=== PATIENT | female | born 1965 | race Caucasian/White ===

== ENCOUNTER → 2021-03-02 | Outpatient (CLI) | payer OTHER ==
[2020-10-28 15:59] VITALS: BP 151/95
[~2021-03-02] MED LIST: CIPR500T94 PO; HYDR12.58 PO; HYDR50TA9 PO; Hydrocodone/Acetaminophen PO; METR500T PO; OMEP20CA16 PO; PARO10TA3 PO; PARO20TA3 PO
== END ==
LOC: LAB 13:04
PROVIDERS: ATTEND Surgery
DX: Z01.812 Encounter for preprocedural laboratory examination (principal); Z20.822 Contact with and (suspected) exposure to COVID-19
CPT/HCPCS: U0003; U0005

== ENCOUNTER 2021-03-05 07:49 | Inpatient (IN) | payer OTHER ==
[~2021-03-05] VITALS: Ht 167.6 cm; Wt 125.0 kg
[~2021-03-05 07:49] MED LIST changes: +IV RINGERS,LACTATED 1000ML 1,000 ML IV SCH; +PROCHLORPERAZINE 10 MG/2 ML VIAL. IVP PRN; +ceFAZolin SODIUM 3 GM in IV DEXTROSE 5% 100ML 100 ML IV PRN; +fentaNYL PF VIAL 100 MCG/2 ML VIAL IVP PRN
[2021-03-05] MEDS ORDERED: fentaNYL PF VIAL 250 MCG/5 ML VIAL ONE (08:17)
[2021-03-05] MEDS ORDERED: LIDOCAINE 2% PF 5 ML VIAL. ONE (08:17)
[2021-03-05] MEDS ORDERED: PROPOFOL 10 MG/ML (20ML) VIAL. IV ONE (08:17)
[2021-03-05] MEDS ORDERED: ROCURONIUM 50 MG/5 ML VIAL. ONE ×2 (08:17→10:32)
[2021-03-05] MEDS ORDERED: DEXAMETHASONE SOD PHOS 4 MG/ML VIAL ONE (08:17)
[2021-03-05] MEDS ORDERED: ONDANSETRON PF 4 MG/2 ML VIAL. ONE (08:17)
[2021-03-05] MEDS ORDERED: SEVOFLURANE > 120 MINUTES. IH ONE (09:12)
[2021-03-05] MEDS ORDERED: GLYCOPYRROLATE 1 MG/5 ML VIAL. ONE (11:48)
[2021-03-05] MEDS ORDERED: NEOSTIGMINE METHYLSULFATE 5 MG/5 ML SYRINGE. ONE (11:48)
[2021-03-05] MEDS ORDERED: fentaNYL PF VIAL 100 MCG/2 ML VIAL ONE (11:49)
[2021-03-05] MEDS ORDERED: 0.9 % SODIUM CHLORIDE 10 ML DISP.SYRIN. IV PRN (12:15)
[2021-03-05] MEDS ORDERED: MORPHINE SULFATE 2 MG/ML VIAL. IV PRN (12:15)
[2021-03-05] MEDS ORDERED: ONDANSETRON PF 4 MG/2 ML VIAL. IV PRN (12:15)
--- NOTE | 2021-03-05 12:18 | PDOC4 ---
Operative Note Operative Note Date: March 05, 2021 at 1212 Preoperative diagnosis: Colostomy Postoperative diagnosis: Same Procedure: Colostomy reversal appendectomy Surgeon: Farhta Specimen: Appendix and descending colon Dictation: Patient is a 55-year-old female who had undergone a Purvis's procedure for perforated diverticulitis she returns now to have colostomy reversal. Procedure of colostomy reversal was explained to the patient detail risk-benefit were also discussed including bleeding infection possible nonhealing of the anastomosis with further surgery. Patient seemed understand and gave both verbal and written consent to have the procedure performed. Patient was taken to the operating room placed in the supine position general anesthesia was initiated once patient was sleeping intubated her abdomen was prepped and draped usual sterile fashion using ChloraPrep. A midline incision was made excising the previous scar. The fascia was incised and surgeon's hand was able to be placed within the abdomen the omentum was swept off of the underside of the fascia with blunt dissection allowing to further open the fascia the full length of the incision. Patient did have some adhesions but they were easily taken down with blunt dissection. The rectal stump was visualized and cleaned off of its adherent tissues the left ovarian tube was adherent to the rectal stump and this was taken down with sharp dissection the stump was cleaned off with adherent tissues giving good access to the proximal portion. Tensions were then turned to the colostomy site which was incised with electrocautery and the colostomy was freed up from the tunneling from the fascia to the skin surface the distal end of the colostomy was stapled and transected and sent for pathology. There were some adhesions to the omentum which were taken down with blunt and sharp dissection this allowed for enough mobilization of the proximal colon to be late into the pelvis. A 2 layered handsewn anastomosis between the proximal rectum and distal descending colon was performed. There is no tension on the anastomosis. The anastomosis performed with 3-0 Vicryl interlocking suture and 3-0 Vicryl Lembert's. The appendix was quite large and out of abundance of caution and appendectomy was performed the mesoappendix at the base the appendix was incised with electrocautery a clamp was placed at the base of the appendix the appendix was transected the mesoappendix was taken down with the LigaSure. Appendix was sent for pathology the stump of the appendix was tied off with a 0 chromic and inverted with a 3-0 Vicryl suture. Pelvis was irrigated and suctioned dry hemostasis deemed be appropriate that point. Tensions were then turned to the fascial defect at the previous colostomy site this was closed with a running oh looped PDS. The fascia was then closed with a running oh loop PDS. The subcutaneous layer was irrigated and suctioned dry a Gray was placed at the base of the wound and the deep layer of the wound was closed with a running 2-0 Vicryl and the skin is reapproximated 4-0 subcuticular Monocryl Mastisol Steri-Strips were applied. The colostomy site was closed deeply with a running 3-0 Vicryl the skin was reapproximated with 3-0 nylon loosely closed. Patient was awakened and extubated in the operating room taken to recovery in stable condition all sponge instrument needle counts listed as correct estimated blood loss 50 mL. SUZI FORD MD Mar 05, 2021 12:18
[2021-03-05] MEDS ORDERED: MORPHINE SULFATE 2 MG/ML VIAL. ONE (12:56)
[2021-03-05] MEDS: MORPHINE SULFATE 2 MG/ML VIAL. IVP PRN ×2 (12:59→13:09)
[2021-03-05] MEDS ORDERED: HYDROmorphone 2 MG/ML VIAL ONE (13:18)
[2021-03-05] MEDS: HYDROmorphone 2 MG/ML VIAL IVP PRN ×4 (13:21→13:51)
[2021-03-05 15:39] VITALS: BP 140/85
[2021-03-05] MEDS: IV DEXTROSE 5%-LACT RINGERS 1,000 ML IV SCH ×2 (16:11→23:49)
[2021-03-05] MEDS: cefOXitin SODIUM IV Push 1 GM VIAL. IVP SCH ×2 (16:11→23:50)
[2021-03-05] MEDS: oxyCODONE/APAP 5/325 1 TAB TABLET PO PRN ×2 (16:44→20:56)
[2021-03-05] MEDS: KETOROLAC 15 MG/ML VIAL. IV SCH ×2 (18:32→23:50)
[2021-03-05 19:22] VITALS: BP 112/72
[2021-03-05] MEDS: NYSTATIN TOPICAL POWDER 15GM BOTTLE. TP SCH ×2 (20:36→20:45)
[2021-03-05 23:00] VITALS: BP 104/63
[2021-03-06] MEDS: oxyCODONE/APAP 5/325 1 TAB TABLET PO PRN ×4 (02:21→19:46)
[2021-03-06 03:00] VITALS: BP 111/76
[2021-03-06] MEDS ORDERED: ceFAZolin SODIUM 3 GM in IV DEXTROSE 5% 100ML 100 ML IV PRN (06:00)
[2021-03-06] MEDS: KETOROLAC 15 MG/ML VIAL. IV SCH ×3 (06:13→18:43)
[2021-03-06 07:00] VITALS: BP 98/68
[2021-03-06 08:53] LABS: BASO % 0 % (0-3); EOS % 0 % (0-3); HEMATOCRIT 39.4 % (36.0-47.0); HEMOGLOBIN 12.5 g/dL (12.0-15.5); LYMPH # 1.7 x10^3/uL (1.0-4.8); LYMPH % 12 % (24-48); MEAN CORPUSCULAR HEMOGLOBIN 25 pg (25-35); MEAN CORPUSCULAR HGB CONC 32 g/dL (31-37); MEAN CORPUSCULAR VOLUME 79 fL (79-100); MONO # 1.5 x10^3/uL (0.0-1.1); MONO % 11 % (0-9); NEUT % 78 % (31-73); PLATELET COUNT 338 x10^3/uL (140-400); RED BLOOD COUNT 4.99 x10^6/uL (3.50-5.40); RED CELL DISTRIBUTION WIDTH 17.3 % (11.5-14.5); WHITE BLOOD COUNT 14.3 x10^3/uL (4.0-11.0)
[2021-03-06] MEDS: cefOXitin SODIUM IV Push 1 GM VIAL. IVP SCH (09:36)
[2021-03-06] MEDS: NYSTATIN TOPICAL POWDER 15GM BOTTLE. TP SCH ×2 (09:36→21:47)
--- NOTE | 2021-03-06 10:41 | PDOC ---
SURGICAL PROGRESS NOTE DATE: 03/06/21 TIME: 10:40 Subjective doing ok pain managed no flatus yet Vital Signs Vital Signs Date Time Temp Pulse Resp B/P (MAP) Pulse Ox O2 Delivery O2 Flow Rate FiO2 03/06/21 10:10 Room Air 03/06/21 07:00 98.6 86 17 98/68 (78) 93 98.6 03/05/21 15:39 2.0 I&O Intake and Output 03/06/21 07:00 Intake Total 3450 ml Output Total 595 ml Balance 2855 ml Intake Oral 50 ml IV Total 3400 ml Output Urine Total 545 ml Estimated Blood Loss 50 ml PATIENT HAS A ASENCIO: Yes (dc today) General: Alert, Oriented X3, Cooperative Abdomen: Soft, Other (dressing dry) Labs Laboratory Tests Test 03/06/21 07:45 White Blood Count 14.3 x10^3/uL (4.0-11.0) Red Blood Count 4.99 x10^6/uL (3.50-5.40) Hemoglobin 12.5 g/dL (12.0-15.5) Hematocrit 39.4 % (36.0-47.0) Mean Corpuscular Volume 79 fL (79-100) Mean Corpuscular Hemoglobin 25 pg (25-35) Mean Corpuscular Hemoglobin Concent 32 g/dL (31-37) Red Cell Distribution Width 17.3 % (11.5-14.5) Platelet Count 338 x10^3/uL (140-400) Neutrophils (%) (Auto) 78 % (31-73) Lymphocytes (%) (Auto) 12 % (24-48) Monocytes (%) (Auto) 11 % (0-9) Eosinophils (%) (Auto) 0 % (0-3) Basophils (%) (Auto) 0 % (0-3) Neutrophils # (Auto) 11.0 x10^3/uL (1.8-7.7) Lymphocytes # (Auto) 1.7 x10^3/uL (1.0-4.8) Monocytes # (Auto) 1.5 x10^3/uL (0.0-1.1) Eosinophils # (Auto) 0.0 x10^3/uL (0.0-0.7) Basophils # (Auto) 0.0 x10^3/uL (0.0-0.2) Laboratory Tests Test 03/06/21 07:45 White Blood Count 14.3 x10^3/uL (4.0-11.0) Red Blood Count 4.99 x10^6/uL (3.50-5.40) Hemoglobin 12.5 g/dL (12.0-15.5) Hematocrit 39.4 % (36.0-47.0) Mean Corpuscular Volume 79 fL (79-100) Mean Corpuscular Hemoglobin 25 pg (25-35) Mean Corpuscular Hemoglobin Concent 32 g/dL (31-37) Red Cell Distribution Width 17.3 % (11.5-14.5) Platelet Count 338 x10^3/uL (140-400) Neutrophils (%) (Auto) 78 % (31-73) Lymphocytes (%) (Auto) 12 % (24-48) Monocytes (%) (Auto) 11 % (0-9) Eosinophils (%) (Auto) 0 % (0-3) Basophils (%) (Auto) 0 % (0-3) Neutrophils # (Auto) 11.0 x10^3/uL (1.8-7.7) Lymphocytes # (Auto) 1.7 x10^3/uL (1.0-4.8) Monocytes # (Auto) 1.5 x10^3/uL (0.0-1.1) Eosinophils # (Auto) 0.0 x10^3/uL (0.0-0.7) Basophils # (Auto) 0.0 x10^3/uL (0.0-0.2) Problem List await bowel function dc asencio increase activity Justicifation of Admission Dx: Justifications for Admission: Justification of Admission Dx: N/A DANI NEUMANN STONEMASON SUPERVISOR Mar 06, 2021 10:41
--- NOTE | 2021-03-06 10:50 | NUR ---
SW following. Discussed with RN, pt from home with , room air, NPO. Pt had surgery 03/05/21. Await bowel function. RN advised no SW needs at this time. SW will continue to follow.
[2021-03-06 11:00] VITALS: BP_SYST 136; BP_SYST 148; BP_DIAS 65; BP_DIAS 68
[2021-03-06] MEDS: IV DEXTROSE 5%-LACT RINGERS 1,000 ML IV SCH ×2 (14:55→18:44)
[2021-03-06 15:00] VITALS: BP 137/59
[2021-03-06 18:14] LABS: CALCIUM 7.7 mg/dL (8.5-10.1); CREATININE 0.8 mg/dL (0.6-1.0); GFR 74.2; POTASSIUM 3.4 mmol/L (3.5-5.1)
[2021-03-06 19:00] VITALS: BP 139/78
--- NOTE | 2021-03-06 19:16 | NUR ---
Juan ROMANO today post op day 1 as ordered
[2021-03-06 23:00] VITALS: BP 123/65
[2021-03-07] MEDS: KETOROLAC 15 MG/ML VIAL. IV SCH ×3 (00:08→12:06)
[2021-03-07 03:00] VITALS: BP 106/65
[2021-03-07 07:00] VITALS: BP 118/64
[2021-03-07] MEDS: IV DEXTROSE 5%-LACT RINGERS 1,000 ML IV SCH (07:42)
[2021-03-07] MEDS: NYSTATIN TOPICAL POWDER 15GM BOTTLE. TP SCH ×2 (08:36→21:44)
[2021-03-07 10:45] VITALS: BP 105/65
[2021-03-07 14:51] VITALS: BP 123/69
--- NOTE | 2021-03-07 17:13 | PDOC ---
SURGICAL PROGRESS NOTE DATE: 03/07/21 TIME: 17:11 Subjective Pt without c/o except incisional pain, no N/V Vital Signs Vital Signs Date Time Temp Pulse Resp B/P (MAP) Pulse Ox O2 Delivery O2 Flow Rate FiO2 03/07/21 14:51 98.6 80 18 123/69 (87) 98 Room Air 98.6 03/07/21 08:00 2.0 I&O Intake and Output 03/07/21 07:00 Intake Total 1350 ml Output Total 325 ml Balance 1025 ml Intake Oral 350 ml IV Total 1000 ml Output Urine Total 325 ml # Voids 1 General: Alert, Oriented X3, Cooperative, No acute distress Abdomen: Soft, Other (mild TTP, dressing c/d/i) Labs Laboratory Tests Test 03/06/21 07:45 White Blood Count 14.3 x10^3/uL (4.0-11.0) Red Blood Count 4.99 x10^6/uL (3.50-5.40) Hemoglobin 12.5 g/dL (12.0-15.5) Hematocrit 39.4 % (36.0-47.0) Mean Corpuscular Volume 79 fL (79-100) Mean Corpuscular Hemoglobin 25 pg (25-35) Mean Corpuscular Hemoglobin Concent 32 g/dL (31-37) Red Cell Distribution Width 17.3 % (11.5-14.5) Platelet Count 338 x10^3/uL (140-400) Neutrophils (%) (Auto) 78 % (31-73) Lymphocytes (%) (Auto) 12 % (24-48) Monocytes (%) (Auto) 11 % (0-9) Eosinophils (%) (Auto) 0 % (0-3) Basophils (%) (Auto) 0 % (0-3) Neutrophils # (Auto) 11.0 x10^3/uL (1.8-7.7) Lymphocytes # (Auto) 1.7 x10^3/uL (1.0-4.8) Monocytes # (Auto) 1.5 x10^3/uL (0.0-1.1) Eosinophils # (Auto) 0.0 x10^3/uL (0.0-0.7) Basophils # (Auto) 0.0 x10^3/uL (0.0-0.2) Sodium Level 143 mmol/L (136-145) Potassium Level 3.4 mmol/L (3.5-5.1) Chloride Level 108 mmol/L (98-107) Carbon Dioxide Level 26 mmol/L (21-32) Anion Gap 9 (6-14) Blood Urea Nitrogen 13 mg/dL (7-20) Creatinine 0.8 mg/dL (0.6-1.0) Estimated GFR (Cockcroft-Gault) 74.2 Glucose Level 131 mg/dL (70-99) Calcium Level 7.7 mg/dL (8.5-10.1) Problem List s/p colostomy takedown await bowel fxn Justicifation of Admission Dx: Justifications for Admission: Justification of Admission Dx: N/A ISAI RUIZ MD Mar 07, 2021 17:12
[2021-03-07] MEDS: oxyCODONE/APAP 5/325 1 TAB TABLET PO PRN (18:51)
[2021-03-07 19:00] VITALS: BP 133/86
[2021-03-07 23:00] VITALS: BP 145/79
--- NOTE | 2021-03-07 23:29 | NUR ---
Right upper arm, single lumen midline placed by [facility].
[2021-03-08 03:00] VITALS: BP 138/75
[2021-03-08] MEDS: IV DEXTROSE 5%-LACT RINGERS 1,000 ML IV SCH ×2 (03:24→19:10)
[2021-03-08 07:00] VITALS: BP 139/76
[2021-03-08 10:33] VITALS: BP 146/83
--- NOTE | 2021-03-08 12:19 | PDOC ---
SURGICAL PROGRESS NOTE DATE: 03/08/21 TIME: 12:18 Subjective Pt without c/o, no n/V, passing flatus and stools Vital Signs Vital Signs Date Time Temp Pulse Resp B/P (MAP) Pulse Ox O2 Delivery O2 Flow Rate FiO2 03/08/21 10:33 98.9 84 18 146/83 (104) 97 Room Air 98.9 03/07/21 18:51 2.0 I&O Intake and Output 03/08/21 07:00 Output Total 650 ml Balance -650 ml Output Urine Total 650 ml # Voids 2 General: Alert, Oriented X3, Cooperative, No acute distress Abdomen: Soft, No tenderness, Other (dressing intact) Problem List s/p colostomy takedown doing well start clears Justicifation of Admission Dx: Justifications for Admission: Justification of Admission Dx: N/A ISAI RUIZ MD Mar 08, 2021 12:19
[2021-03-08] MEDS: NYSTATIN TOPICAL POWDER 15GM BOTTLE. TP SCH ×2 (12:37→23:07)
[2021-03-08 14:33] VITALS: BP 145/87
[2021-03-08 19:00] VITALS: BP 150/80
[2021-03-08 23:00] VITALS: BP 147/90
[2021-03-08] MEDS: oxyCODONE/APAP 5/325 1 TAB TABLET PO PRN (23:39)
[2021-03-09 03:00] VITALS: BP 122/80
[2021-03-09 07:00] VITALS: BP 126/72
--- NOTE | 2021-03-09 08:11 | PDOC ---
SURGICAL PROGRESS NOTE DATE: 03/09/21 TIME: 08:10 Subjective Patient doing quite well has had several bowel movements passing flatus up and ambulating tolerating clear liquid diet Vital Signs Vital Signs Date Time Temp Pulse Resp B/P (MAP) Pulse Ox O2 Delivery O2 Flow Rate FiO2 03/09/21 07:00 98.4 79 18 126/72 (90) 96 Room Air 98.4 I&O Intake and Output 03/09/21 07:00 Intake Total 500 ml Balance 500 ml Intake Oral 500 ml # Voids 2 PATIENT HAS A JHA: No General: Alert, Oriented X3, Cooperative, mild distress Abdomen: Normal bowel sounds, Soft, Other (Wounds clean dry and intact mild incisional tenderness) Assessment/Plan Patient doing quite well status post colostomy reversal Advance diet possible home tomorrow Justicifation of Admission Dx: Justifications for Admission: Justification of Admission Dx: N/A SUZI FORD MD Mar 09, 2021 08:11
[2021-03-09] MEDS: NYSTATIN TOPICAL POWDER 15GM BOTTLE. TP SCH ×2 (08:38→21:10)
[2021-03-09] MEDS: IV DEXTROSE 5%-LACT RINGERS 1,000 ML IV SCH ×2 (08:42→22:55)
[2021-03-09 10:30] VITALS: BP 149/82
--- NOTE | 2021-03-09 13:22 | NUR ---
SW following. Discussed with RN, pt from home with , room air, clear liquid diet - advance as tolerated. Pt is current with [facility]. Anticipate discharge home tomorrow (03/10/21). SW will continue to follow.
[2021-03-09 14:26] VITALS: BP 144/89
[2021-03-09 19:00] VITALS: BP 124/81
[2021-03-09] MEDS ORDERED: LORA-434 PO (21:13)
[2021-03-09] MEDS ORDERED: PARO10TA57 PO (21:13)
[2021-03-09] MEDS ORDERED: PNV1TABL12 PO (21:13)
[2021-03-09] MEDS: oxyCODONE/APAP 5/325 1 TAB TABLET PO PRN (21:18)
[2021-03-09 23:00] VITALS: BP 144/79
[2021-03-10 03:00] VITALS: BP 128/66
[2021-03-10 07:00] VITALS: BP 138/78
[2021-03-10] MEDS: NYSTATIN TOPICAL POWDER 15GM BOTTLE. TP SCH (08:16)
[2021-03-10 11:00] VITALS: BP 154/81
--- NOTE | 2021-03-10 11:10 | NUR ---
SW following. Discussed with RN, pt from home with , room air, full liquid diet, COVID-19 negative. Pt is current with [facility]. RN anticipates pt will discharge home today. SW will continue to follow.
[2021-03-10] MEDS ORDERED: OXYC1TAB15 PO (11:58)
[2021-03-10] MEDS: IV DEXTROSE 5%-LACT RINGERS 1,000 ML IV SCH (11:59)
--- NOTE | 2021-03-10 11:59 | DISCH ---
DISCHARGE INSTRUCTIONS Condition on Discharge Condition on Discharge: Stable Activity After Discharge Activity Instructions for Disc: Activity as tolerated Lifting Instructions after Dis: No heavy lifting, No pulling or pushing, Do not lift >10 pounds Exercise Instruction after Dis: Progress as tolerated Driving Instructions after Dis: Do not drive Weight Bearing Status after Di: As tolerated Diet after Discharge Diet after Discharge: GI Soft Wound Incision Care Wound/Incision Care: No wound care needed Contacting the after DC Call your doctor for: Concerns you may have Follow-Up Follow up with: Dr Dougherty 2 weeks, call to schedule [phone] Treatment/Equipment after DC Adaptive Equipment Issued: None DANI NEUMANN MOLD CAPPER Mar 10, 2021 11:59
--- NOTE | 2021-03-10 12:01 | PDOC3 ---
Discharge Summary Visit Information Date of Admission: Mar 05, 2021 Date of Discharge: Mar 10, 2021 Admitting Diagnosis: colostomy Final Diagnosis colostomy Brief Hospital Course Allergies Allergies Coded Allergies Type Severity Reaction Last Updated Verified No Known Drug Allergies 03/05/21 No Vital Signs Vital Signs Date Time Temp Pulse Resp B/P (MAP) Pulse Ox O2 Delivery O2 Flow Rate FiO2 03/10/21 11:00 98.3 89 18 154/81 (105) 96 98.3 03/10/21 08:00 Room Air Brief Hospital Course Ms. Solano is a 55 old underwent Colostomy reversal and appendectomy. Postoperatively bowel function slowly returned. At discharge tolerating diet, pain managed, ambulating. Will return home and follow up in office Discharge Information Condition at Discharge: Stable Follow Up: Weeks (2) Disposition/Orders: D/C to Home Scheduled Hydrochlorothiazide (Hydrochlorothiazide Tablet) 12.5 Mg Tablet, 1 TAB PO DAILY, #30 Ref 5 (Reported) Entered as Reported by: CHAITANYA CANO on 04/13/15 0944 Last Taken: Unknown Dose on 03/04/21 Last Action: Last Taken Edited on 03/05/21 08 by SAILAJA LE Omeprazole (Omeprazole) 20 Mg Capsule., 1 CAP PO QTUTHSA for GERD, #30 Ref 5 (Reported) Entered as Reported by: YUNIEL CANCINO on 10/16/20 154 Last Taken: Unknown Dose on 03/05/21 0600 Last Action: Last Taken Edited on 03/05/21 0816 by SAILAJA LE Paroxetine Hcl (Paxil) 10 Mg Tablet, 1 TAB PO DAILY for depression for 30 Days, #30 Ref 0 (Reported) Entered as Reported by: FABIO ALVES on 03/09/212112 Last Action: New Order on 03/09/212112 by FABIO ALVES Pnv Cmb#21/Iron/Folic Acid ( Complete Caplet) 1 Each Tablet, 1 EACH PO DAILY for supplement, (Reported) Entered as Reported by: FABIO ALVES on 03/09/212112 Last Action: New Order on 03/09/212112 by FABIO ALVES Scheduled PRN Lorazepam (Ativan) 1 Mg Tablet, 1 MG PO PRN BID PRN for ANXIETY, (Reported) Entered as Reported by: FABIO ALVES on 03/09/212112 Last Action: New Order on 03/09/212112 by FABIO ALVES Oxycodone/Apap 5-325 (Percocet 5-325 Mg Tablet ) 1 Each Tablet, 1 TAB PO PRN Q4HRS PRN for MILD PAIN, 1ST CHOICE, #30 Ref 0 Prescribed by: Dani Pepe on 03/10/21 1158 Discontinued Medications [Hydrocodone/Acetaminophen] 1 TAB TABLET, 1 TAB PO PRN Q6HRS PRN for PAIN Prescribed by: ALAYNA JOSEPH on 04/14/15 1300 Last Taken: Unknown Dose on 03/04/21 Last Action: Last Taken Edited on 03/05/21 0816 by SAILAJA LE Justicifation of Admission Dx: Justifications for Admission: Justification of Admission Dx: N/A DANI PEPE APRN Mar 10, 2021 12:01
--- NOTE | 2021-03-10 12:47 | SNU/HH DC ---
DISCHARGE WITH HOME HEALTH DISCHARGE INFORMATION: Discharge Date: Mar 10, 2021 Condition on Discharge: Stable HOME HEALTH: Face to Face: I certify this patient is under my care and that I, or a nurse practitioner or physician's museum assistant working with me, had a face to face encounter that meets the physician face to face encounter requirements with this patient on []. Medical Complications: Other (s/p recent surgery) RN For Eval/Treatment: No Physical Therapy For: Evalulation/Treatment Pt Meets Homebound Status: Poor coordination w/ amb., Fatigue w/ amb. POST DISCHARGE ORDERS: Activity Instructions for Disc: Activity as tolerated Weight Bearing Status after Di: As tolerated DIET AFTER DISCHARGE: Cardiac Wound/Incision Care: No wound care needed FOLLOW-UP: Follow up with: Dr Dougherty 2 weeks, call to schedule [phone] TREATMENT/EQUIPMENT ORDERS: Adaptive Equipment Issued: None CERTIFICATION STATEMENT: Certification Statement: Certification Statement: Based on the above finding, I certify that this patient is confined to the home and needs intermittent residential care, physical therapy and/or speech therapy, or continues to need occupational therapy.~ This patient is under my care, and I have initiated the establishment of the plan of care.~ This patient will be followed by myself or a community physician who will periodically review the plan of care. Home Meds Active Scripts Oxycodone/Apap 5-325 (PERCOCET 5-325 MG TABLET ) 1 Each Tablet, 1 TAB PO PRN Q4HRS PRN for MILD PAIN, 1ST CHOICE, #30 TAB 0 Refills Prov:DANI NEUMANN CHAR FILTER TANK TENDER 03/10/21 Reported Medications Lorazepam (ATIVAN) 1 Mg Tablet, 1 MG PO PRN BID PRN for ANXIETY, TAB 03/09/21 Pnv Cmb#21/Iron/Folic Acid ( COMPLETE CAPLET) 1 Each Tablet, 1 EACH PO DAILY for supplement, TAB 03/09/21 Paroxetine Hcl (PAXIL) 10 Mg Tablet, 1 TAB PO DAILY for depression for 30 Days, #30 TAB 0 Refills 03/09/21 Omeprazole (OMEPRAZOLE) 20 Mg Capsule., 1 CAP PO QTUTHSA for GERD, #30 CAP 5 Refills 10/16/20 Hydrochlorothiazide (HYDROCHLOROTHIAZIDE TABLET) 12.5 Mg Tablet, 1 TAB PO DAILY, #30 TAB 5 Refills 04/13/15 Discontinued Scripts [Hydrocodone/Acetaminophen] 1 TAB TABLET No Conflict Check, 1 TAB PO PRN Q6HRS PRN for PAIN Prov:ALAYNA JOSEPH MD 04/14/15 DANI NEUMANN CHAR FILTER TANK TENDER Mar 10, 2021 12:47
--- NOTE | 2021-03-11 15:08 | PATHOLOGY ---
[facility] Accession Number: [id number] . 01 Material submitted: . PART A: abdomen - ABDOMINAL SCAR PART B: colon - DISTAL COLON. Modifiers: distal PART C: colon - COLON PART D: appendix - APPENDIX . 01 Clinical history: . COLOSTOMY CARE COLOSTOMY TAKEDOWN . 02 Diagnosis: A. Skin and soft tissue "abdominal scar", excision: - Intradermal scar with chronic inflammation, suture granulomas, and areas of fat necrosis involving subcutaneous adipose tissue. - Negative for malignancy. . B. Large bowel and skin "distal colon", excision: - Reactive changes of skin with marked chronic inflammation, compatible with stoma site. - Reactive/regenerative features of large bowel mucosa and chronic features of chronic serositis. - Negative for malignancy. . C. Large bowel "colon", excision: - Large bowel without significant pathologic alteration. . D. Vermiform appendix, excision: - Acute and chronic serositis. - Negative for malignancy. (MLK:pit; 03/11/2021) P 03/11/2021 1243 Local . 02 Electronically signed: . Nelida Dela Cruz MD, Pathologist NPI- [id number] . 01 Gross description: . A. The specimen is received in formalin, labeled "Monique Solano, abdominal scar". Received is an elongated segment of pale olivera, wrinkled skin measuring 20.2 x 1.8 x 2.3 cm in greatest dimensions. The specimen is submitted representatively in cassettes A1 and A2. . B. The specimen is received in formalin, labeled "Monique Solano, distal colon". Received is a segment of colon measuring 5.3 cm in length and ranges in diameter from 2.3-3.5 cm. One margin is stapled closed. The opposite margin displays an ellipse of pale olivera to ocasio-olivera skin measuring 3.2 x 1.2 cm. The serosal surface is pink-ocasio with a large amount of overlying adhesions. Opening the specimen reveals pink-olivera mucosa with moderate architectural folds. No distinct nodules or lesions are noted grossly. The specimen is submitted representatively in cassette B1. . C. The specimen is received in formalin, labeled "Monique Solano colon". Received are two segments of light olivera mucosa, both of which have ana lines, measuring 2.0 x 1.8 x 1.2 and 3.2 x 1.2 x 0.8 cm in greatest dimensions. Auto Slip Cover Installer sections from each segment are submitted in cassettes C1 and C2. . D. The specimen is received in formalin, labeled "Monique Solano, appendix". Received is a vermiform appendix 5.6 cm in length and up to 0.9 cm in diameter with a large amount of attached mesoappendix. The serosal surface is pale olivera to pink-ocasio in appearance. The surgical margin is stapled. The ana are removed and the new margin is inked black. Sectioning reveals a pinpoint to slightly patent lumen. No distinct nodules or lesions are noted grossly. The specimen is submitted representatively in cassettes D1 and D2, with the proximal margin and bisected tip submitted in cassette D2. ([facility]; 03/06/2021) QAC/QAC 03/06/2021 1736 Local . 02 Pathologist provided ICD-10: L08.9, L90.5, K65.8 . 02 CPT . 229555, 667652, 364320, 188731 Specimen Comment: A courtesy copy of this report has been sent to [phone], [phone] Specimen Comment: [id number] Specimen Comment: Report sent to / DR KOCH Performed at: 01 [facility] [address], [place], [place] [id number] MD Nghia Craig MD Phone: [phone] Performed at: 02 [facility] [address], [place] [id number] MD Sixto Perry MD Phone: [phone]
== END 2021-03-10 15:01 | disposition home health service (06) | DRG 343 ==
LOC: OPSVCIP 07:49 → 4 NORTH 15:04
PROVIDERS: ADMIT Surgery; ATTEND Surgery
PROC: 0DTJ0ZZ Resection of Appendix, Open Approach (ICD-10-PCS; 2021-03-05)
PROC: 0DSM0ZZ Reposition Descending Colon, Open Approach (ICD-10-PCS; principal; 2021-03-05 09:15)
DX: Z43.3 Encounter for attention to colostomy (principal); E78.5 Hyperlipidemia, unspecified; K57.90 Diverticulosis of intestine, part unspecified, without perforation or abscess without bleeding
CPT/HCPCS: 36415; 36569; 80048; 85025; A4223; A4314; A4364; A4452; A4930; A6253; A6402; J0690; J0694; J0780; J1100; J1170; J1885; J2270; J2405; J2704; J2710; J3010; J3490; J7060; J7120; J7121; G0378